=== PATIENT | male | born 1985 | race Caucasian/White ===

== ENCOUNTER 2022-08-21 09:04 | Emergency (ER) | payer BC ==
[~2022-08-21] VITALS: Ht 182.9 cm; Wt 95.3 kg
[2022-08-21] MEDS ORDERED: DICLOFENAC SODI75 MG PO (09:38)
== END 2022-08-21 09:49 | disposition home or self-care (01) ==
LOC: ER 09:04
DX: M54.50 Low back pain, unspecified (principal)